=== PATIENT | female | born 1990 | race Caucasian/White ===

== ENCOUNTER 2020-05-26 08:09 | Emergency (ER) | payer OTHER, SELFPAY ==
--- NOTE | 2020-05-26 08:10 | ED.GENADULT ---
HPI - General Adult General Chief complaint: Unspecified Stated complaint: sore throat Time Seen by Provider: 05/26/20 08:10 Source: patient Mode of arrival: ambulatory Limitations: no limitations History of Present Illness HPI narrative: Patient is a 29-year-old female who presents for evaluation of sore throat. Patient reports sore throat, redness, white mucus on the back of her tonsils. She denies any fever, myalgias, mild congestion. No loss of taste or smell. No shortness of breath or cough. No ear pain. Patient states she was seen in urgent care and have a COVID swab and a strep swab which were negative. She has been taking amoxicillin without improvement in her symptoms. Related Data Home Medications Medication Instructions Recorded Confirmed amoxicillin 05/26/20 Allergies Allergy/AdvReac Type Severity Reaction Status Date / Time No Known Allergies Allergy Unknown Verified 05/26/20 08:18 Review of Systems Review of Systems: Narrative: CONSTITUTIONAL: Denies fever HEENT: Reports sore throat, denies ear pain CARDIOVASCULAR: Denies chest pain RESPIRATORY: Denies cough or dyspnea. GASTROINTESTINAL: Denies abdominal pain SKIN: Denies rash MUSCULOSKELETAL: Denies back pain NEUROLOGIC: Denies headache [facility] Past Medical History Medical History Acid reflux Miscarriage Surgical History Surgical History Hx of cholecystectomy Social History Social History (Updated 05/26/20 @ 08:11 by Estrella Platt MD) Smoking status: Current every day smoker Tobacco type: cigarettes Gender identity (if verbalized by the patient): Female Exam Narrative: Exam Narrative: GENERAL: Awake, alert, conversant, tearful HEAD: Normocephalic, atraumatic. EYES: PERRLA and EOMI. ENT: Nares clear, no rhinorrhea or epistaxis. Mucous membranes moist. Bilateral tonsillar exudate, white in color, tonsillar edema, erythema, no petechiae. Uvula is midline. No trismus. NECK: Supple. CHEST: No respiratory distress, breathing even and non labored HEART: Regular rate, sinus rhythm ABDOMEN:Non distended, non tender EXTREMITIES: Normal range of motion. No edema. SKIN: Warm, dry, no rash. NEURO:No focal deficits. Alert and oriented x3 Course Vital Signs Vital signs: Vital Signs Temperature 37.2 C 05/26/20 08:15 Pulse Rate 107 H 05/26/20 08:15 Respiratory Rate 17 05/26/20 08:15 Blood Pressure 121/83 05/26/20 08:15 Pulse Oximetry 100 05/26/20 08:15 Temperature 37.2 C 05/26/20 08:15 Pulse Rate 107 H 05/26/20 08:15 Respiratory Rate 17 05/26/20 08:15 Blood Pressure 121/83 05/26/20 08:15 Pulse Oximetry 100 05/26/20 08:15 Medical Decision Making MDM Narrative Medical decision making narrative: Clinically, patient exam is most consistent with strep pharyngitis given exudate, erythema, evidence of tonsillitis. Patient already has COVID test which is pending, will not do additional testing at this time. I have a low clinical suspicion for it just given no loss of taste or smell, afebrile, no cough or shortness of breath. Patient without neck pain, no headache, no trismus, doubt retropharyngeal abscess or any space occupying lesion. As patient has been on amoxicillin, but failing this treatment, will expand to azithromycin, will add Decadron. Patient was discharged home and given PCP follow-up. Vital Signs Vital Signs: Vital Signs Temperature 37.2 C 05/26/20 08:15 Pulse Rate 107 H 05/26/20 08:15 Respiratory Rate 17 05/26/20 08:15 Blood Pressure 121/83 05/26/20 08:15 Pulse Oximetry 100 05/26/20 08:15 Temperature 37.2 C 05/26/20 08:15 Pulse Rate 107 H 05/26/20 08:15 Respiratory Rate 17 05/26/20 08:15 Blood Pressure 121/83 05/26/20 08:15 Pulse Oximetry 100 05/26/20 08:15 Discharge Plan Discharge Clinical Impression: Acute streptococcal pha
[2020-05-26 08:15] VITALS: BP 121/83; PULSE 107; RESP 17; TEMP 37.2; O2SAT 100
[2020-05-26] MEDS: ACETAMINOPHEN 500 MG TABLET 1000 MG PO (08:41)
[2020-05-26 08:46] VITALS: BP 120/74; PULSE 101; RESP 14; O2SAT 99
== END 2020-05-26 08:47 | disposition home or self-care (01) ==
PROVIDERS: Emergency Provider Emergency Medicine
DX: J02.0 Streptococcal pharyngitis (principal)
CPT/HCPCS: 99283; A9270; J1100

== ENCOUNTER 2023-08-13 14:05 | Outpatient (CLI) | payer BC, SELFPAY ==
--- NOTE | ~2023-08-13 | US_ITS ---
US breast LT limited DATE: 08/13/2023 14:58 INDICATION: Report of provider palpation of 3 cm soft movable nontender left breast mass at 3:00 late rally TECHNIQUE: Real-time imaging targeted to 2:00 at 4:00 left breast COMPARISON: None FINDINGS: No suspicious mass, cyst or suspicious shadowing or other significant sonographic abnormali ty is detected. IMPRESSION: BI-RADS Category 1: Negative Reviewed, dictated and finalized at [facility] Reviewed, dictated and finalized at [facility].
== END 2023-08-13 14:06 ==
PROVIDERS: PCP Nurse Practitioner Obstetrics & Gynecology; Visit Provider Nurse Practitioner Obstetrics & Gynecology
DX: N63.20 Unspecified lump in the left breast, unspecified quadrant (principal); Z80.3 Family history of malignant neoplasm of breast
CPT/HCPCS: 76642

== ENCOUNTER 2023-08-15 12:31 | Outpatient (CLI) | payer BC, SELFPAY ==
--- NOTE | ~2023-08-15 | MM_ITS ---
EXAMINATION: MM diagnostic valerie LT w inderjit HISTORY: Unspecified left breast lump TECHNIQUE: ML, MLO and CC 3-D tomosynthesis images of the left breast were performed and synthetic 2- D images were generated. CAD analysis was submitted and interpreted. COMPARISON: 08/13/2023 and left Limited breast ultrasound examination BREAST PARENCHYMAL COMPOSITION: There are scattered areas of fibroglandular density. FINDINGS: No suspicious mass or architectural distortion, malignant calcification, skin thickening or retraction of the left breast is detected. IMPRESSION: 1. No mammographic or sonographic evidence of malignancy of left breast 2. Routine mammographic screening beginning at age 40 is recommended unless symptoms or physical find ings present earlier. Negative mammogram and ultrasound do not preclude further evaluation of a clinically suspicious palpa ble finding. BI-RADS Category 1: Negative Reviewed, dictated and finalized at [facility] IMPRESSION: 1. No mammographic or sonographic evidence of malignancy of left breast 2. Routine mammographic screening beginning at age 40 is recommended unless sym ptoms or physical findings present earlier. Negative mammogram and ultrasound do not preclude further evaluation of a clini cherri suspicious palpable finding. BI-RADS Category 1: Negative
== END 2023-08-15 12:32 ==
PROVIDERS: PCP Nurse Practitioner Obstetrics & Gynecology; Visit Provider Nurse Practitioner Obstetrics & Gynecology
DX: N63.20 Unspecified lump in the left breast, unspecified quadrant (principal); R92.8 Other abnormal and inconclusive findings on diagnostic imaging of breast; Z80.3 Family history of malignant neoplasm of breast
CPT/HCPCS: 77061; 77065; G0279